=== PATIENT | male | born 1980 | race Caucasian/White ===

== ENCOUNTER 2018-12-01 08:39 | Emergency (ER) | payer OTHER ==
[~2018-12-01] VITALS: Ht 170.2 cm; Wt 76.0 kg
[2018-12-01] MEDS ORDERED: SODIUM CHLORIDE 0.9% 1,000 ML IV ONE (09:06)
[2018-12-01] MEDS ORDERED: LORAZEPAM 2MG/ML CPJ IV ONE (09:15)
[2018-12-01 09:30] LABS: BASOPHILS % 0.6 % (0.0-2.0); EOSINOPHILS % 2.5 % (0.0-5.0); HEMATOCRIT. 44.9 % (42.0-52.0); HEMOGLOBIN. 14.9 g/dL (14.0-18.0); LYMPHOCYTES % 26.2 % (20.0-50.0); MEAN CORPUSCULAR VOLUME 84.2 fL (80.0-94.0); MEAN PLATELET VOLUME 7.9 fl (7.4-10.4); MONOCYTES % 4.9 % (2.0-8.0); NEUTROPHILS % 65.8 % (40.0-76.0); PLATELET 270 x1000/uL (130-400); RED BLOOD CELL COUNT 5.33 mill/uL (4.7-6.1); RED CELL DISTRIBUTION WIDTH 13.5 % (11.6-14.6)
[2018-12-01 09:37] LABS: CHLORIDE 104 mEq/L (98-107)
[2018-12-01 09:40] LABS: INR 0.9; PARTIAL THROMBOPLASTIN TIME 25.4 sec (23.4-31.0); PROTHROMBIN TIME 9.5 sec (9.6-11.0)
[2018-12-01 09:42] LABS: ETHANOL BLOOD < 10 mg/dL
[2018-12-01 09:44] LABS: BETA HYDROXYBUTYRATE 0.2 mMol/L (0.0-0.3)
[2018-12-01 09:54] LABS: BG BASE EXCESS -1.7 mmol/L (-2.0-2.0); BG CARBOXYHEMOGLOBIN 3.3 % (0.5-1.5); BG DEOXYHEMOGLOBIN 3.6 % (0.0-5.0); BG HCO3 ACT 23.2 mmol/L (22.0-26.0); BG METHEMOGLOBIN 0.3 % (0.0-1.5); BG OXYGEN SATURATION 96.3 % (92.0-98.5); BG OXYHEMOGLOBIN 92.8 % (94.0-97.0); BG PH 7.381 (7.350-7.450); BG PO2 85.8 mmHg (75.0-100.0); BG SAMPLE SITE RIGHT RADIAL; BG TOTAL HEMOGLOBIN 14.2 g/dL (12.0-18.0); BG VENT MODE ROOM AIR
[2018-12-01] MEDS ORDERED: INSULIN REGULAR (HUMULIN R) 300UNITS/3ML IV ONE (10:15)
[2018-12-01 11:04] LABS: METHADONE URINE SCREEN NEGATIVE (NEGATIVE); OPIATES URINE SCREEN NEGATIVE (NEGATIVE)
[2018-12-01 11:05] LABS: *AMPHETAMINES SCREEN URINE PRESUMTIVE POSITIVE (NEGATIVE); *BARBITURATES SCREEN URINE NEGATIVE (NEGATIVE); *BENZODIAZEPINES SCREEN URINE NEGATIVE (NEGATIVE); CANNABINOID URINE SCREEN PRESUMTIVE POSITIVE (NEGATIVE); PHENCYCLIDINE URINE SCREEN NEGATIVE (NEGATIVE)
[2018-12-01 11:06] LABS: *COCAINE SCREEN URINE PRESUMTIVE POSITIVE (NEGATIVE)
[2018-12-01 11:35] VITALS: BP 137/78
== END 2018-12-01 12:00 | disposition home or self-care (01) ==
LOC: ER 08:39
DX: S60.512A Abrasion of left hand, initial encounter (principal); G92 Toxic encephalopathy; E11.65 Type 2 diabetes mellitus with hyperglycemia; F14.120 Cocaine abuse with intoxication, uncomplicated; F15.120 Other stimulant abuse with intoxication, uncomplicated; W01.0XXA Fall on same level from slipping, tripping and stumbling without subsequent striking against object, initial encounter; Y93.89 Activity, other specified; Y92.89 Other specified places as the place of occurrence of the external cause; Y99.8 Other external cause status
CPT/HCPCS: 36415; 36600; 73130; 80053; 80305; 80307; 80320; 80329; 82010; 82375; 82805; 82962; 84484; 85025; 85610; 85730; 93005; 96361; 96374; 99284; J1815; J7030; G0480

== ENCOUNTER 2019-07-26 02:37 | Emergency (ER) | payer OTHER ==
[~2019-07-26] VITALS: Ht 172.7 cm; Wt 80.0 kg
[2019-07-26 02:40] VITALS: BP 149/96
== END 2019-07-26 03:42 | disposition left against medical advice (07) ==
LOC: ER 02:54
DX: Z53.21 Procedure and treatment not carried out due to patient leaving prior to being seen by health care provider (principal)

== ENCOUNTER 2019-07-26 04:39 | Emergency (ER) | payer OTHER ==
[~2019-07-26] VITALS: Ht 175.3 cm; Wt 85.0 kg
[2019-07-26] MEDS ORDERED: KETOROLAC 60MG/2ML VIAL IM ONE (06:45)
[2019-07-26 07:07] VITALS: BP 153/77
== END 2019-07-26 07:08 | disposition home or self-care (01) ==
LOC: ER 04:39
DX: S90.822A Blister (nonthermal), left foot, initial encounter (principal); S90.821A Blister (nonthermal), right foot, initial encounter; R46.0 Very low level of personal hygiene; Y93.01 Activity, walking, marching and hiking; Y92.89 Other specified places as the place of occurrence of the external cause; E11.9 Type 2 diabetes mellitus without complications; I10 Essential (primary) hypertension; F15.10 Other stimulant abuse, uncomplicated; F12.90 Cannabis use, unspecified, uncomplicated
CPT/HCPCS: 96372; 99283; J1885

== ENCOUNTER 2024-09-20 23:02 | Emergency (ER) | payer OTHER ==
[2024-09-20 23:10] VITALS: PULSE 110; RESP 18; O2SAT 100
== END 2024-09-21 02:14 | disposition left against medical advice (07) ==
LOC: ER 23:34
DX: Z48.00 Encounter for change or removal of nonsurgical wound dressing (principal); Z53.21 Procedure and treatment not carried out due to patient leaving prior to being seen by health care provider